=== PATIENT | male | born 2000 | race Two or more races ===

== ENCOUNTER 2024-11-05 06:46 | Emergency (ER) | payer MEDICAID, SELFPAY ==
--- NOTE | 2024-11-05 | XR_ITS ---
MRI shoulder, right, without contrast. Date and time: November 05, 2024 1056 hrs. Indications: Injury to the shoulder 2 weeks ago with persistent shoulder pain Technique: Multiple axial, sagittal and coronal sections of the shoulder have been obtained. Siemens high-resolution 1.5 Linda MRI scanner is utilized. Axial fat-suppressed sections, TR 2350, TE 18 T2-weighted coronal fat-saturated images, TR 3500, TE 7100 T1-weighted coronal images, TR 500, TE 15 T2-weighted sagittal fat-saturated images, TR 3500, TE 57 T1-weighted sagittal sections, TR 504, TE 13. Findings: Supraspinatus tendon insertion is intact. Infraspinatus tendon insertion is intact. Subscapularis insertion is intact. Subscapularis bursa is not seen. Long head of the biceps is in the bicipital groove. No definite tear of the biceps superior labral anchor is seen. Retraction of the musculotendinous junction of the rotator cuff is not seen . Tendinosis pattern is not seen. Distance between the acromium and humeral head is 8 mm Atrophy of the supraspinatus muscle is not seen. Atrophy of the infraspinatus muscle is not seen. Sagittal sections demonstrate a horizontal acromion. Acromioclavicular joint demonstrates fluid. Osacromiale is not identified. Fraying and irregularity anterior superior labral margins. Bony glenoid fossa on the sagittal sections does not demonstrate osseous defect. Occult fracture or area of avascular necrosis is not seen. Acromioclavicular joint separation is not visible. Defect in the posterolateral margin of the humeral head is not seen Impression: Rotator cuff intact AC joint strain although no separation Fraying and irregularity anterior superior labral margin
[2024-11-05 06:47] VITALS: BP 139/76; PULSE 83; RESP 20; TEMP 36.7; O2SAT 95
[2024-11-05 06:49] VITALS: BMI 27.7
--- NOTE | 2024-11-05 07:52 | PD.EDUPEX ---
Upper Extremity Injury RME/HPI General Chief Complaint: Extremity Injury, Upper Stated Complaint: RIGHT SHOULDER PAIN Time Seen by Provider: 11/05/24 06:55 Arrival date/time: 11/05/24 06:46 Limitations: no limitations RME / HPI RME / HPI narrative: 23-year-old male with no reported past medical history presents for evaluation of right shoulder pain x 5 days. He reports that he was lifting barbecue off of a grill when he felt a sharp pain in his anterior right shoulder. He states he is unable to lift his arm past 90 degrees. Denies numbness, tingling, weakness, neck pain, chest pain, skin changes. He reports sharp pain with internal and external rotation of right upper extremity. He notes injury has limiting his daily activities as he cannot safely drive due to right shoulder pain. He notes prior similar injury x 2 years ago at which time he was told he had an impingement. Patient reports moderate improvement in symptoms following ibuprofen at home with last dose at 2300 last night. No additional injuries reported. Patient is right-hand dominant. MD complaint: injury to: right Other injuries: none Handedness: right Place: home Relieving factors: immobilization Exacerbating factors: movement of extremity Associated symptoms: denies other symptoms Related Data Previous Rx's ?Medication ?Instructions ?Recorded cyclobenzaprine 10 mg tablet 10 mg PO TID PRN muscle spasm #30 11/05/24 tabs Allergies Allergy/AdvReac Type Severity Reaction Status Date / Time Sulfa (Sulfonamide Allergy Severe SWELLS Verified 11/05/24 06:48 Antibiotics) erythromycin base Allergy Mild ITCHING Verified 11/05/24 06:48 Review of Systems Constitutional Constitutional: Denies body ache(s), Denies chills, Denies fever(s) and Denies weakness Eyes Eyes: Denies blind spots and Denies blurry vision ENT Ears, Nose, Mouth, and Throat: Denies dizziness and Denies neck pain Cardiovascular Cardiovascular: Denies chest pain, Denies dyspnea and Denies leg edema Respiratory Respiratory: Denies cough, Denies dyspnea and Denies wheezing Gastrointestinal Gastrointestinal: Denies abdominal pain and Denies vomiting Genitourinary Genitourinary: Denies dysuria Musculoskeletal Musculoskeletal: Reports arthralgias (Right shoulder.), Denies back pain, Denies deformity, Denies neck pain, Denies numbness and Denies tingling Integumentary/Breasts Skin/Breast: Denies lesions and Denies skin pain Neurologic Neurologic: Denies dizziness, Denies numbness, Denies paresthesias, Denies sensory deficit, Denies tingling and Denies weakness Allergic/Immunologic Allergic/Immunologic: Denies wheezing Past Medical History Past Medical History RESPIRATORY: Negative Respiratory Disorders Social History SMOKING STATUS: Never smoker ED Exam General Limitations: Present no limitations General appearance: Present alert and in no apparent distress Head Head exam: Present atraumatic and normocephalic Eye Eye exam: Present normal appearance and EOMI ENT ENT exam: Present normal exam and mucous membranes moist Neck Neck exam: Present normal inspection and full ROM Chest Chest inspection: Present normal inspection and symmetric chest wall rise; Absent tenderness Respiratory Respiratory exam: Present normal lung sounds bilaterally; Absent respiratory distress Cardiovascular Cardiovascular exam: Present regular rate and +S1 Abdominal Exam Abdominal exam: Present soft; Absent distention Expanded Upper Extremity Exam Shoulder exam: Present tenderness over AC joint and other (Limited range of motion with extension right shoulder. Appears impinged.); Absent tenderness, swelling, ecchymosis, deformity or crepitus Arm exam: Present normal inspection and full ROM Elbow exam: Present normal inspection and full ROM Forearm/Wrist exam: Present normal inspection and full ROM Hand exam: Present normal inspection and full ROM Neurosensory exam: Normal radial nerve Vascular exam: Normal radial pulse (Intact and equal bilaterally.) Back Exam Back exam: Present normal inspection and full ROM; Absent tenderness, paraspinal tenderness or vertebral tenderness Neurological Exam Neurological exam: Present alert and normal gait Psychiatric Psychiatric exam: Present normal affect Skin Skin exam: Present warm, dry and intact Course Quality Measures none Orders Category Date Time Status MRI Screening NOW Care 11/05/24 07:51 Active MR shoulder RT wo con Stat Exams 11/05/24 Completed Ketorolac Inj [Toradol Inj] Med 11/05/24 07:51 Discontinued 30 mg IM X1 ONE Reevaluation(s) Reevaluation #1: Patient evaluated by Dr. Noble at approximately 0715 who advised MRI shoulder for likely impingement. Time: 11:58 Vital Signs Vital signs: Vital Signs Temperature 98.0 F 11/05/24 06:47 Pulse Rate 83 11/05/24 06:47 Respiratory Rate 20 11/05/24 06:47 Blood Pressure 139/76 H 11/05/24 06:47 Pulse Oximetry (%) 95 11/05/24 06:47 Oxygen Delivery Method Room Air 11/05/24 06:47 Pulse ox 95% on room air, within normal limits. Extremity Injury MDM Narrative MDM Narrative:: Previously healthy 23-year-old male presents for evaluation of right shoulder pain x 5 days. Patient endorsed prior similar symptoms for which he received an MRI and was told he had friable rotator cuff and impingement. No evidence of dislocation, no humeral fracture, no rotator cuff tear on imaging today. MRI was ordered today which showed intact rotator cuff but fraying at the superior labral margin and increased space and AC joint. Patient was discharged with plan to follow-up with primary care for possible outpatient PT referral. Patient was given information for local orthopedic surgeon for outpatient consultation. Patient's pain was improved in the department following Toradol. Patient was stable at time of discharge. Patient data External records reviewed:: [facility] previous records Clinical information provided by:: patient Social determinants that could affect healthcare access:: none Patient has the following chronic illnesses:: None reported. How is presenting disease/condition affected by chronic disease/condition?: no chronic disease Evaluation data The following diagnostics were reviewed and interpreted by me:: radiology exam(s) Lab and/or radiology exams considered but not ordered:: MRI ordered. Interpretation Summary: Impression: Rotator cuff intact AC joint strain although no separation Fraying and irregularity anterior superior labral margin Medications / Prescriptions Medications or Prescriptions considered but not ordered:: Rx given. Medication administrations:: Medication Administration History Discontinued Medications Ketorolac Tromethamine (Ketorolac Inj 60 Mg/2 Ml Vial) 30 mg IM X1 ONE Stop: 11/05/24 07:52 Last Admin: 11/05/24 08:07 Dose: 30 mg Documented By: ED Rx given. Consultations Consultation(s) initiated? (list below): No Consultation #1 (Physician, Specialty, Details): No orthopedic doctor on-call today. Time: 14:08 Diagnosis Upper Extremity Injury Differential Diagnosis: dislocation of shoulder, fracture of humerus, fracture of clavicle and other (Rotator cuff tear, shoulder impingement, shoulder sprain.) Most likely diagnosis given after review of the tests above:: Right shoulder pain. Admission Indicated Admission indicated?: not indicated Admission Request Was there a request for admission?: No Disposition Plan Disposition Plan: Discharge Discharge Attestation Discharge Attestation: The patient and all family members were given an opportunity to ask questions and understood the discharge instructions. Discharge instructions specifically effects, indications for sooner follow up or return to the emergency department, and the expected course of current diagnosis. Patient condition: Stable Discharge Plan Plan Patient Disposition: HOME (Self Care) Discharge Disposition comment: stable Prescriptions/Referrals Prescriptions/Med Rec: New cyclobenzaprine 10 mg tablet 10 mg PO TID PRN (Reason: muscle spasm) Qty: 30 0RF Referrals: Darion Obando FNP [Primary Care Provider] - In 1 week Problem List Clinical Impression: Acute shoulder pain Patient/Caregiver Discharge Instructions Education Materials: ED Shoulder Pain, Uncertain Cause Additional Instructions: Follow-up with primary care within the next week for reevaluation and possible physical therapy referral. Follow-up with orthopedic surgery within the next week for further recommendations. You may take Tylenol or ibuprofen as needed for pain every 6 hours. Abstain from shoulder workouts until you are evaluated by orthopedic surgery. Use ice every 6 hours as needed for pain and inflammation for up to 15 minutes at a time. Return to the ED if your symptoms worsen or change. Dr. Abdi Bearden (Orthopedic Surgery) [facility] [place] MRI Impression: Rotator cuff intact AC joint strain although no separation Fraying and irregularity anterior superior labral margin Atrophy of the supraspinatus muscle is not seen. Atrophy of the infraspinatus muscle is not seen. Print Language: Martiniquais Stand Alone Forms: Alejandra Award Info., Patient Portal Info Letter CHARO/CLARA Supervising Physician CHARO/CLARA Supervising Physician: Dr. Noble
[2024-11-05] MEDS: KETOROLAC INJ 60 MG/2 ML VIAL 30 MG IM (08:07)
--- NOTE | 2024-11-05 09:33 | PC.NURSE ---
called MRI per Bao pt. has 2 other pt.'s ahead of him.
== END 2024-11-05 14:06 | disposition home or self-care (01) ==
PROVIDERS: Emergency Provider Emergency Medicine
DX: M25.511 Pain in right shoulder (principal)
CPT/HCPCS: 73221; 96372; 99284; J1885

== ENCOUNTER 2024-12-30 08:27 | Outpatient (RCR) | payer MEDICAID, SELFPAY ==
--- NOTE | 2024-12-30 10:25 | PT.OIERPT ---
PT OP Initial Eval Patient Information Outpatient Physical Therapy Treatment Date: 12/30/24 Visit Reasons: right shoulder pain Medical Diagnosis: M25.511 Treatment Dx #1: Right Shoulder Pain Start of Care: 12/30/24 Date of Onset: 2 years ago Smoking Status Smoking Status: Never smoker Initial Assessment Subjective: Pt is a 24 y/o male reports of chronic right shoulder pain (01/01) with popping and locking since 2 years ago. Pt's most recent MRI showed fraying and irregularity of the labrum. Pt has attempted physical therapy and cortisone shots in the past without success. Pt has not seen a sports orthopaedic surgeon only local surgeon in town. Pt has limitation with rotational arm movement, lifting, chores, working out, overhead motions, and pushing. Objective: Right Shoulder AROM: all motions are WNL Right Shoulder MMTs: grossly 4/5 Right Scapula MMTs: grossly 4/5 Special Test (+) speed's (+) yergason's Assessment: Pt demonstrate normal right shoulder AROM and strength, however, has pain leading to difficulty with functional ADLs. Pt will not benefit from physical therapy due to no physical impairment noted where physical therapy intervention is indicated. Recommend patient to see a sports orthopaedic surgeon for further consultation. Pt was evaluated and d/c from care and advised to follow up with PCP; thank you for your referrals. Short Term and Assisted Goals 1) Eval and D/C 2) Follow up with PCP 3) Recommend sports orthopaedic consult Treatment Plan Frequency and Duration: 1x Certification Dates: 12/30/24 to 04/01/25 Procedure Charges OP PT Eval Mod Complex 30 minutes: Yes
== END 2025-01-22 23:59 | disposition home or self-care (01) ==
LOC: CPTX 08:27
DX: M25.511 Pain in right shoulder (principal); G89.29 Other chronic pain
CPT/HCPCS: 97162